=== PATIENT | female | born 1960 | race Native Hawaiian/Other Pacific Islander ===

== ENCOUNTER 2019-03-25 14:58 | Emergency (ER) | payer OTHER ==
[~2019-03-25] VITALS: Ht 172.7 cm; Wt 98.4 kg
[2019-03-25] MEDS ORDERED: CHOLESTERO PO (15:23)
[2019-03-25] MEDS ORDERED: BP MED PO (15:23)
[2019-03-25] MEDS ORDERED: MOBIC15 MG PO (15:24)
[2019-03-25 16:23] VITALS: BP 129/86; TEMP 98.5
== END 2019-03-25 16:25 | disposition home or self-care (01) ==
LOC: ED 14:58
PROC: 0HQLXZZ Repair Left Lower Leg Skin, External Approach (ICD-10-PCS; principal; 2019-03-25)
DX: S81.812A Laceration without foreign body, left lower leg, initial encounter (principal); W31.89XA Contact with other specified machinery, initial encounter; Y93.89 Activity, other specified; Y92.63 Factory as the place of occurrence of the external cause
CPT/HCPCS: 90471; 90715; 99283

== ENCOUNTER 2019-04-05 15:40 | Emergency (ER) | payer OTHER ==
[~2019-04-05] VITALS: Ht 172.7 cm; Wt 98.4 kg
[~2019-04-05 15:40] MED LIST: BP MED PO; CHOLESTERO PO; MOBIC15 MG PO
[2019-04-05 15:56] VITALS: BP 128/82; TEMP 97.9
== END 2019-04-05 17:02 | disposition home or self-care (01) ==
LOC: ED 15:40
DX: Z48.02 Encounter for removal of sutures (principal)